=== PATIENT | female | born 1970 | race Caucasian/White ===

== ENCOUNTER 2024-09-30 08:11 | Emergency (ER) | payer BC ==
[~2024-09-30] VITALS: Ht 160 cm; Wt 56.7 kg
[2024-09-30] MEDS ORDERED: PLAVIX75 MG PO (08:29)
[2024-09-30] MEDS ORDERED: JANTOVEN5 MG PO (08:30)
[2024-09-30 08:48] LABS: INR 3.95 (0.80-1.30)
[2024-09-30 09:39] VITALS: BP 120/88
== END 2024-09-30 09:40 | disposition home or self-care (01) ==
LOC: ED 08:11
PROVIDERS: Emergency Medicine
DX: K91.840 Postprocedural hemorrhage of a digestive system organ or structure following a digestive system procedure (principal); Z79.01 Long term (current) use of anticoagulants; Z88.5 Allergy status to narcotic agent
CPT/HCPCS: 36415; 85018; 85610; 99283